=== PATIENT | female | born 1990 ===

== ENCOUNTER 2018-05-03 03:16 | Emergency (ER) | payer SELFPAY ==
[2018-05-03 03:29] VITALS: BP 117/67; PULSE 83; RESP 16; TEMP 97.9; O2SAT 98
--- NOTE | 2018-05-03 05:08 | ED PDOC ---
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 Patient states she just fell asleep, and while admits to drinking, has no complaints and wants to go home. Denies injury or drug use. PMD: none provided Past Medical History Reviewed: Historical Data Vital Signs: Last Vital Signs Temp 97.9 F 05/03/18 03:27 Pulse 83 05/03/18 03:27 Resp 16 05/03/18 03:27 BP 117/67 05/03/18 03:27 Pulse Ox 98 05/03/18 03:27 - Medical History PMH: No Chronic Diseases - Surgical History Surgical History: No Surg Hx - Family History Family History: States: Unknown Family Hx - Social History Current smoker - smoking cessation education provided: No Alcohol: Other ("few days a week") Drugs: Denies - Allergies Allergies/Adverse Reactions: Allergies Allergy/AdvReac Type Severity Reaction Status Date / Time No Known Allergies Allergy Verified 05/03/18 03:30 Review of Systems ROS Statement: Except As Marked, All Systems Reviewed And Found Negative Constitutional: Negative for: Other (injury) Physical Exam - Reviewed Nursing Documentation Reviewed: Yes Vital Signs Reviewed: Yes - Physical Exam Appears: Positive for: No Acute Distress (but mildly intoxicated) Head Exam: Positive for: ATRAUMATIC, NORMOCEPHALIC Skin: Positive for: Normal Color. Negative for: Rash Eye Exam: Positive for: Normal appearance ENT: Positive for: Normal ENT Inspection Neck: Positive for: Normal, Painless ROM, Supple Cardiovascular/Chest: Positive for: Regular Rate, Rhythm Respiratory: Positive for: Normal Breath Sounds. Negative for: Accessory Muscle Use, Respiratory Distress Gastrointestinal/Abdominal: Positive for: Normal Exam, Soft. Negative for: Tenderness Back: Positive for: Normal Inspection Extremity: Positive for: Normal ROM Neurologic/Psych: Positive for: Alert, Oriented (x3), Gait (steady) - ECG O2 Sat by Pulse Oximetry: 98 (RA) Pulse Ox Interpretation: Normal Medical Decision Making Medical Decision Making: A/P: 33 year old female with mild alcohol intoxication --Well appearing other than intoxicated, no trauma --Patient quickly fell asleep 0500 --Patient awake, alert, oriented, steady gait --Stable for discharge Scribe Attestation: Documented by Rebecca Kahn, acting as a scribe for Lam Pringle MD. Provider Scribe Attestation: All medical record entries made by the Scribe were at my direction and personally dictated by me. I have reviewed the chart and agree that the record accurately reflects my personal performance of the history, physical exam, medical decision making, and the department course for this patient. I have also personally directed, reviewed, and agree with the discharge instructions and disposition. Disposition - Clinical Impression Clinical Impression: Alcohol abuse - Disposition Referrals: Alcoholics Anonymous [Outside] Disposition: Routine/Home Disposition Time: 05:00 Condition: STABLE Instructions: Alcohol Abuse and Alcoholism (DC) Forms: [employer] (Sami) Print Language: BULGARIAN
== END 2018-05-03 06:52 | disposition home or self-care (01) ==
LOC: EDBD 03:16 → H.ER 03:16
DX: F10.129 Alcohol abuse with intoxication, unspecified (principal)